=== PATIENT | male | born 1955 | race Asian ===

== ENCOUNTER 2018-09-09 10:09 | Outpatient (CLI) | payer OTHER | END 2018-09-09 23:07 | disposition home or self-care (01) | LOC: RAD 10:09 | DX: M25.562 Pain in left knee (principal) ==

== ENCOUNTER 2020-02-13 12:09 | Emergency (ER) | payer OTHER ==
[~2020-02-13] VITALS: Ht 188 cm; Wt 127.0 kg
[2020-02-13 12:22] VITALS: BP 139/81; TEMP 98.5
[2020-02-13] MEDS ORDERED: MOBIC15 MG PO (12:45)
== END 2020-02-13 12:25 | disposition home or self-care (01) ==
LOC: ED 12:09
DX: R03.0 Elevated blood-pressure reading, without diagnosis of hypertension (principal)
CPT/HCPCS: 99281